=== PATIENT | male | born 1955 | race Caucasian/White ===

== ENCOUNTER 2024-06-30 15:17 | Emergency (ER) | payer BC, MEDICARE, SELFPAY ==
--- NOTE | 2024-06-30 15:52 | HMH.EDGENADL ---
Discharge Plan Disposition Patient Disposition: Left Against Medical Advice Referrals Follow up/Referrals: Provider,Referral, MD [Primary Care Provider] - See instructions Activity Restrictions/Add. Instructions Additional Instructions/Restrictions: Today you were evaluated in the emergency department, your nephrostomy tube is displaced. You are signing out AGAINST MEDICAL ADVICE. You are welcome to return to the ED at any time. Please go to your nearest ED if your condition worsens at all. Please follow-up as soon as possible. Clinical Impressions Clinical Impression: Displacement of nephrostomy tube Fall Qualifiers: Encounter type: initial encounter Qualified Code(s): W19.XXXA - Unspecified fall, initial encounter Abrasion of head Qualifiers: Encounter type: initial encounter Qualified Code(s): S00.91XA - Abrasion of unspecified part of head, initial encounter Closed rib fracture Qualifiers: Encounter type: initial encounter Rib fracture type: single rib Laterality: right Qualified Code(s): S22.31XA - Fracture of one rib, right side, initial encounter for closed fracture Print Language Print Language: Kyrgyz Discharge ED Provider: Brayan Wright General Adult HPI <Claribel Beltran APRN - Last Filed: 06/30/24 17:53> General Chief complaint: Fall Stated complaint: AO 1430, blood in neuro bag Time Seen by Provider: 06/30/24 15:51 History of Present Illness HPI narrative: patient is a 69-year-old male PMHx prostate cancer & recent nephrostomy tube placement on right side due to kidney failure, who presents to the ED after a fall that occurred at [facility] prior to arrival. Patient states he was standing when his left knee gave out causing him to fall back, hitting his head on the concrete. Related Data Allergies Allergy/AdvReac Type Severity Reaction Status Date / Time No Known Allergies Allergy Verified 06/30/24 16:08 PFSH <Claribel Beltran APRN - Last Filed: 06/30/24 17:53> [facility] Disclaimer: The information contained in this section may have been updated after the patient was seen, as this information can be updated by other users. Medical History (Updated 06/30/24 @ 17:50 by Claribel Beltran APRN) Chronic kidney disease Prostate cancer Social History (Updated 06/30/24 @ 17:53 by Claribel Beltran APRN) Smoking Status: Current every day smoker alcohol intake: never current occupational status: unemployed Travel in the last 8 weeks?: None Have you lived/traveled outside [place] in past 30 days?: No Contact w/someone who lives/traveled outside US past 30 days?: No Exposure to someone with infectious disease in past 14 days?: No Do you have a fever (greater than 100.4 F or 38 C)?: No Have you tested positive for COVID-19?: No Exposed to someone with COVID-19 in past 14 days?: No Do you have a sore throat?: No Do you have a cough?: No Do you have any weakness?: No Do you have any diarrhea?: No Are you experiencing any unusual bleeding?: No Do you have any muscle aches/pain?: No Do you have any abdominal pain?: No Are you experiencing loss of taste or smell?: No <Claribel Beltran APRN - Last Filed: 06/30/24 17:53> ROS Obtained: Yes Systems reviewed as appropriate & no additional complaints except as documented Physical Exam <Claribel Beltran APRN - Last Filed: 06/30/24 17:53> General General appearance: alert Head Head exam: normocephalic and other (small abrasion on posterior head) Eye Eye exam: Present normal appearance, PERRL and EOMI; Absent nystagmus ENT ENT exam: Present normal exam Neck Neck exam: Present normal inspection Chest Chest inspection: Present normal inspection and symmetric chest wall rise; Absent tenderness Respiratory Respiratory exam: Present normal lung sounds bilaterally Cardiovascular Cardiovascular exam: Present regular rate Abdominal Exam Abdominal exam: Present soft and normal bowel sounds; Absent tenderness Extremities Exam Extremities exam: Present normal inspection and full ROM Back Exam Back exam: Present normal inspection and full ROM Neurological Exam Neurological exam: Present alert and oriented X3; Absent motor sensory deficit Psychiatric Psychiatric exam: Present normal affect and normal mood Skin Skin exam: Present warm and dry Medical Decision Making <Claribel Beltran APRN - Last Filed: 06/30/24 17:53> Medical Records Screening: Per USPSTF and CDC recommendations, given the prevalence of disease in our region, it is our hospital?s policy to screen for HIV and viral Hepatitis for all patients aged 18 and over and those with ongoing risk factors. Brady Inquiry Pt receiving controlled substance: No Vital Signs: 06/30/24 15:54 06/30/24 15:56 06/30/24 18:02 Temperature 98.2 F 98.6 F Temperature Source Oral Oral Pulse Rate 83 81 Pulse Rate [Left] 88 Respiratory Rate 16 17 Blood Pressure 97/59 L 107/59 L Blood Pressure [Right Arm] 95/54 L Blood Pressure Mean [Right Arm] 67 Blood Pressure Source Automatic Cuff Blood Pressure Source [Right Arm] Automatic Cuff Blood Pressure Position Sitting Blood Pressure Position [Right Arm] Sitting 02 Sat by Pulse Oximetry 93 L 96 Oxygen Delivery Method Room Air Room Air Room Air Orders (Tests/Meds): ORDERS Category Date Time Status CT abdomen pelvis wo con Stat Cat Scan 06/30/24 15:[address] cervical spine wo con Stat Cat Scan 06/30/24 15:[address] head/brain wo con Stat Cat Scan 06/30/24 15:[address] lumbar spine wo con Stat Cat Scan 06/30/24 15:[address] thoracic spine wo con Stat Cat Scan 06/30/24 15:59 Completed Medical Decision Narrative: In summary, patient is a 69-year-old male PMHx prostate cancer & recent nephrostomy tube placement on right side due to kidney failure, who presents to the ED after a fall that occurred at [facility] prior to arrival. Patient states he was standing when his left knee gave out causing him to fall back, hitting his head on the concrete. Patient has a small laceration on the top of posterior aspect of his head. He denies loss of consciousness. He is on Eliquis. Denies visual changes or headache at this time. Is concerned due to bleeding in the nephrostomy tube bag. Patient refuses c-collar. States he stayed at [facility] and had his meal. Denies fever, chills, body aches, chest pain, SOA, abd pain. Upon initial evaluation patient is alert, oriented and cooperative. He is hemodynamically stable. Physical exam remarkable for nephrostomy tube on right side, tenderness noted around the area. Small abrasion on posterior head, no active bleeding. No nystagmus. EOM intact. Discussed with patient that we will proceed with CT scans of Head, C-spine, T-SPine, L-Spine and abd pel. Pt is agreebale to plan of care at this time. Dressing removed from nephrostomy tube area, appears intact on outside, no active bleeding. CT scan of the head final read no acute intracranial pathology. CT scan of the C-spine unremarkable for any acute cervical spinal injury demonstrated by the CT. CT scan of the thoracic spine no acute bony abnormalities. CT of the abdomen pelvis final read remarkable for extensive retroperitoneal and retrocrural lymphadenopathy, bilateral internal ureteral stents in place. There is a dislodged percutaneous right nephrostomy catheter lying outside of the collecting system. Extensive third spacing within the soft tissues with diffuse mesenteric retroperitoneal edema and anasarca in the soft tissue. Acute slightly displaced fracture of the posterior right ninth rib. Additional subacute chronic fractures of the right rib cage. CT scan of the lumbar spine remarkable for no acute bony abnormalities however 1.5 cm indeterminate sclerotic bone lesion within the sacrum. Discussed with patient and family that the nephrostomy tube is displaced. I advised him that there is bone mets on the CT scan, they are already aware of this. Discussed the ninth rib fracture, patient states he has fractured his right ribs previously. Patient states that he wants to go home to [place] to have his nephrostomy tube replaced. They are driving home today. ED attending spoke to patient and family regarding leaving AMA. Patient family signed AMA form, they were advised they may return to the ED or their nearest ED at any time. <Brayan Wright MD - Last Filed: 06/30/24 19:07> Vital Signs: 06/30/24 15:54 06/30/24 15:56 06/30/24 18:02 Temperature 98.2 F 98.6 F Temperature Source Oral Oral Pulse Rate 83 81 Pulse Rate [Left] 88 Respiratory Rate 16 17 Blood Pressure 97/59 L 107/59 L Blood Pressure [Right Arm] 95/54 L Blood Pressure Mean [Right Arm] 67 Blood Pressure Source Automatic Cuff Blood Pressure Source [Right Arm] Automatic Cuff Blood Pressure Position Sitting Blood Pressure Position [Right Arm] Sitting 02 Sat by Pulse Oximetry 93 L 96 Oxygen Delivery Method Room Air Room Air Room Air Orders (Tests/Meds): ORDERS Category Date Time Status CT abdomen pelvis wo con Stat Cat Scan 06/30/24 15:[address] cervical spine wo con Stat Cat Scan 06/30/24 15:[address] head/brain wo con Stat Cat Scan 06/30/24 15:[address] lumbar spine wo con Stat Cat Scan 06/30/24 15:[address] thoracic spine wo con Stat Cat Scan 06/30/24 15:59 Completed Medical Decision Narrative: In summary, patient is a 69-year-old male PMHx prostate cancer & recent nephrostomy tube placement on right side due to kidney failure, who presents to the ED after a fall that occurred at [facility] prior to arrival. Patient states he was standing when his left knee gave out causing him to fall back, hitting his head on the concrete. Patient has a small laceration on the top of posterior aspect of his head. He denies loss of consciousness. He is on Eliquis. Denies visual changes or headache at this time. Is concerned due to bleeding in the nephrostomy tube bag. Patient refuses c-collar. States he stayed at [facility] and had his meal. Denies fever, chills, body aches, chest pain, SOA, abd pain. Upon initial evaluation patient is alert, oriented and cooperative. He is hemodynamically stable. Physical exam remarkable for nephrostomy tube on right side, tenderness noted around the area. Small abrasion on posterior head, no active bleeding. No nystagmus. EOM intact. Discussed with patient that we will proceed with CT scans of Head, C-spine, T-SPine, L-Spine and abd pel. Pt is agreebale to plan of care at this time. Dressing removed from nephrostomy tube area, appears intact on outside, no active bleeding. CT scan of the head final read no acute intracranial pathology. CT scan of the C-spine unremarkable for any acute cervical spinal injury demonstrated by the CT. CT scan of the thoracic spine no acute bony abnormalities. CT of the abdomen pelvis final read remarkable for extensive retroperitoneal and retrocrural lymphadenopathy, bilateral internal ureteral stents in place. There is a dislodged percutaneous right nephrostomy catheter lying outside of the collecting system. Extensive third spacing within the soft tissues with diffuse mesenteric retroperitoneal edema and anasarca in the soft tissue. Acute slightly displaced fracture of the posterior right ninth rib. Additional subacute chronic fractures of the right rib cage. CT scan of the lumbar spine remarkable for no acute bony abnormalities however 1.5 cm indeterminate sclerotic bone lesion within the sacrum. Discussed with patient and family that the nephrostomy tube is displaced. I advised him that there is bone mets on the CT scan, they are already aware of this. Discussed the ninth rib fracture, patient states he has fractured his right ribs previously. Patient states that he wants to go home to [place] to have his nephrostomy tube replaced. They are driving home today. ED attending spoke to patient and family regarding leaving AMA. Patient family signed AMA form, they were advised they may return to the ED or their nearest ED at any time. I was consulted by the ALDO, and we discussed the complexity of the problems being addressed. I approved the treatment and management plan for this patient's care in the Emergency Department, thus performing a substantive portion of the medical decision making. Brayan Wright MD Critical Care <Claribel Beltran, [employer]PERVISOR - Last Filed: 06/30/24 17:53> Critical Care Time Critical Care Time: No
[2024-06-30 15:54] VITALS: BP 97/59; PULSE 83; O2SAT 93
[2024-06-30 15:56] VITALS: BP 95/54; PULSE 88; RESP 16; TEMP 36.8; O2SAT 96; BMI 19.3
--- NOTE | 2024-06-30 15:58 | CT_ITS ---
PROCEDURE INFORMATION: Exam: CT Head Without Contrast Exam date and time: 06/30/2024 4:06 PM Age: 69 years old Clinical indication: Injury or trauma; Fall; Additional info: Fall hit head TECHNIQUE: Imaging protocol: Computed tomography of the head without contrast. Radiation optimization: All CT scans at this facility use at least one of these dose optimization techniques: automated exposure control; mA and/or kV adjustment per patient size (includes targeted exams where dose is matched to clinical indication); or iterative reconstruction. COMPARISON: CT HEAD/BRAIN WO CON 06/30/2024 4:06 PM FINDINGS: Brain: There are involutional changes of the brain which are in keeping with the patient's age. There is no acute intracranial hemorrhage or abnormal extra-axial fluid collection identified. There is no intracranial mass effect or shift of midline structures. The nieves-white differentiation is preserved throughout. There is no sulcal effacement. The basilar cisterns are open. Cerebral ventricles: No hydrocephalus or ventricular effacement. Paranasal sinuses: There is minimal sinus mucosal disease, with no air-fluid level identified. Mastoid air cells: There is no mastoid effusion detected. Bones: No calvarial fracture or destructive osseous lesions are seen. Soft tissues: Unremarkable. Vasculature: Atherosclerotic vascular disease is noted at the level of the skull base. IMPRESSION: No acute intracranial pathology identified by CT.
--- NOTE | 2024-06-30 15:58 | CT_ITS ---
PROCEDURE INFORMATION: Exam: CT Cervical Spine Without Contrast Exam date and time: 06/30/2024 4:08 PM Age: 69 years old Clinical indication: Injury or trauma; Fall; Additional info: Fall hit head TECHNIQUE: Imaging protocol: Computed tomography of the cervical spine without contrast. Radiation optimization: All CT scans at this facility use at least one of these dose optimization techniques: automated exposure control; mA and/or kV adjustment per patient size (includes targeted exams where dose is matched to clinical indication); or iterative reconstruction. COMPARISON: CT HEAD/BRAIN WO CON 06/30/2024 4:06 PM FINDINGS: Bones: There are no anterior wedging deformities. No acute lucent fracture lines are visualized. Spondylosis and facet arthropathy noted. No severe central canal or neural foraminal stenosis demonstrated by CT. Lungs: Emphysematous changes are seen at the lung apices. Soft tissues: Unremarkable. IMPRESSION: No acute cervical spinal injury demonstrated by CT.
--- NOTE | 2024-06-30 15:58 | CT_ITS ---
PROCEDURE INFORMATION: Exam: CT Abdomen And Pelvis Without Contrast Exam date and time: 06/30/2024 4:19 PM Age: 69 years old Clinical indication: Injury or trauma; Fall; Additional info: Fall on back, neph tube bleeding on R side TECHNIQUE: Imaging protocol: Computed tomography of the abdomen and pelvis without contrast. Radiation optimization: All CT scans at this facility use at least one of these dose optimization techniques: automated exposure control; mA and/or kV adjustment per patient size (includes targeted exams where dose is matched to clinical indication); or iterative reconstruction. COMPARISON: CT LUMBAR SPINE WO CON 06/30/2024 4:15 PM FINDINGS: Limitations: Assessment is limited due to lack of inherent contrast due to paucity of body fat and diffuse soft tissue edema limiting assessment of fat and fascial planes in this patient. Lungs: Lung bases are clear. Liver: Small liver cyst medial segment left lobe otherwise liver is unremarkable. Gallbladder and biliary ducts: Normal. No calcified stones. No ductal dilation. Pancreas: Pancreas is poorly visualized limiting assessment. Spleen: Normal. No splenomegaly. Adrenal glands: Adrenal glands are poorly visualized limiting assessment. Kidneys and ureters: There are bilateral internal ureteral stents in place within the renal collecting system. There is a right percutaneous nephrostomy catheter that appears to terminate along the outer margin of the right kidney outside the collecting system. Stomach and bowel: Unremarkable. No obstruction. No mucosal thickening. Appendix: No evidence of appendicitis. Intraperitoneal space: Unremarkable. No free air. No significant fluid collection. Retroperitoneal space: There is extensive mesenteric, retroperitoneal edema and anasarca in the soft tissues secondary to 3rd spacing. Vasculature: Abdominal aorta and iliac vessels are diffusely calcified. There is no aortic aneurysm. Lymph nodes: There is extensive retrocrural and retroperitoneal lymphadenopathy within the abdomen that is not well visualized suspicious for lymphomatous process. Urinary bladder: Unremarkable as visualized. Reproductive: Unremarkable as visualized. Bones/joints: There is an acute nondisplaced fracture involving the posterolateral aspect of the right 9th rib partially visualized. There are additional subacute-chronic fractures of the right posterolateral ribcage also partially visualized. Soft tissues: Unremarkable. IMPRESSION: 1. Extensive retroperitoneal and retrocrural lymphadenopathy suggestive of lymphomatous process. Please correlate with history. 2. Bilateral internal ureteral stents in place. There is a dislodged or displaced percutaneous right nephrostomy catheter lying outside the collecting system. 3. Extensive 3rd spacing within the soft tissues with diffuse mesenteric retroperitoneal edema and anasarca in the soft tissues. 4. Acute slightly displaced fracture posterior aspect right 9th rib and additional subacute-chronic fractures right ribcage.
--- NOTE | 2024-06-30 15:59 | CT_ITS ---
PROCEDURE INFORMATION: Exam: CT Thoracic Spine Without Contrast Exam date and time: 06/30/2024 4:11 PM Age: 69 years old Clinical indication: Injury or trauma; Fall; Additional info: Fall on back TECHNIQUE: Imaging protocol: Computed tomography of the thoracic spine without contrast. Radiation optimization: All CT scans at this facility use at least one of these dose optimization techniques: automated exposure control; mA and/or kV adjustment per patient size (includes targeted exams where dose is matched to clinical indication); or iterative reconstruction. COMPARISON: CT CERVICAL SPINE WO CON 06/30/2024 4:08 PM FINDINGS: Bones/joints: Thoracic curvature and alignment is unremarkable. There are no compression fractures, spondylolysis or spondylolisthesis. There are mild multilevel degenerative changes mid-lower thoracic spine with anterior disc space narrowing, endplate sclerosis and mild osteophytic lipping. There is no significant stenosis of the spinal canal and neural foramina. Soft tissues: There is no prevertebral or paraspinal soft tissue swelling. There is extensive retrocrural and retroperitoneal lymphadenopathy in the upper abdomen but should be correlated with history. IMPRESSION: 1. No acute bony abnormalities. 2. Extensive upper abdominal lymphadenopathy that should be correlated with history.
--- NOTE | 2024-06-30 15:59 | CT_ITS ---
PROCEDURE INFORMATION: Exam: CT Lumbar Spine Without Contrast Exam date and time: 06/30/2024 4:15 PM Age: 69 years old Clinical indication: Injury or trauma; Fall; Additional info: Fall on back TECHNIQUE: Imaging protocol: Computed tomography of the lumbar spine without contrast. Radiation optimization: All CT scans at this facility use at least one of these dose optimization techniques: automated exposure control; mA and/or kV adjustment per patient size (includes targeted exams where dose is matched to clinical indication); or iterative reconstruction. COMPARISON: CT LUMBAR SPINE WO CON 06/30/2024 4:15 PM FINDINGS: Bones/joints: Lumbar curvature and alignment is unremarkable. There are no compression fractures, spondylolysis or spondylolisthesis. Disc heights are maintained. There is no significant stenosis of the central canal or neural foramina. There is a 1.5 cm sclerotic bone lesion within the left sacral ala that is indeterminate with sclerotic bone metastasis to be excluded. Soft tissues: Paraspinal soft tissues are difficult to assess due to the lack of inherent soft tissue contrast. There is extensive retroperitoneal lymphadenopathy redemonstrated. IMPRESSION: 1. No acute bony abnormalities. 2. 1.5 cm indeterminate sclerotic bone lesion within the sacrum. Can not exclude osteoblastic bone metastasis.
--- NOTE | 2024-06-30 16:20 | PC.NURSE ---
Pt transported to CT
--- NOTE | 2024-06-30 17:16 | PC.WOUNDNOTE ---
Pt posterior head lac cleansed. Bandaged with a non adherent pad, 4x4's and curlex. Pt right nephrostomy tube dressing removed, replaced with 4x4s, large transparent tegaderm and cleansed tubing.
[2024-06-30 18:02] VITALS: BP 107/59; PULSE 81; RESP 17; TEMP 37; O2SAT 96
== END 2024-06-30 18:05 | disposition left against medical advice (07) ==
PROVIDERS: Emergency Provider Emergency Medicine
DX: T83.022A Displacement of nephrostomy catheter, initial encounter (principal); S22.31XA Fracture of one rib, right side, initial encounter for closed fracture; S00.91XA Abrasion of unspecified part of head, initial encounter; F17.210 Nicotine dependence, cigarettes, uncomplicated; N18.9 Chronic kidney disease, unspecified; Z79.01 Long term (current) use of anticoagulants; Z85.46 Personal history of malignant neoplasm of prostate; W18.30XA Fall on same level, unspecified, initial encounter
CPT/HCPCS: 70450; 72125; 72128; 72131; 74176; 99285